=== PATIENT | female | born 1985 | race Caucasian/White ===

== ENCOUNTER 2023-08-19 15:55 | Observation (INO) ==
[2023-08-19 16:31] LABS: INR 1.03 (0.83-1.13)
[2023-08-19 16:33] LABS: ABS Basophils 0.1 10^3/uL (0.0-0.1); ABS Lymphocytes 1.2 10^3/uL (1.0-4.8); ABS Monocytes 0.9 10^3/uL (0.0-0.9); ABS Nucleated RBC 0.01 10^3/ul; Hematocrit 31.6 % (35-45); Hemoglobin 9.7 g/dL (11.5-14.3); Lymphocyte % 14.3 %; Mean Corpuscular Hemoglobin 20.7 pg (27-33); Mean Corpuscular Hgb Conc 30.8 g/dL (31-36); Mean Corpuscular Volume 67.2 fL (80-97); Mean Platelet Volume 8.3 fL (7.5-11.2); Nucleated Red Blood Cells % 0.1 %/100WBC (0.0-0.8); Platelet Count 160 10^3/uL (150-450); Red Cell Distribution Width 21.5 % (12-17); White Blood Count 8.1 10^3/uL (3.8-11.8)
[2023-08-19] MEDS ORDERED: Lactated Ringers 1000 ml BAG 1,000 ML IV ONE ×2 (16:41→16:42)
[2023-08-19] MEDS ORDERED: Lorazepam PYXIS KEY PRN (16:42)
[2023-08-19] MEDS ORDERED: LORazepam 2 mg VIAL 1 ml IV PUSH ONE (16:42)
[2023-08-19] MEDS ORDERED: Ondansetron 4 mg VIAL 2 MG/ML 2 ml VIAL IV ONE (16:42)
[2023-08-19 16:46] LABS: ALT 61 U/L (7-52); AST 123 U/L (13-39); Albumin 4.7 g/dL (3.2-5.2); Albumin/Globulin Ratio 1.7 (1-3); Alkaline Phosphatase 73 U/L (35-149); Anion Gap 14 mmol/L (2-16); Blood Urea Nitrogen 6 mg/dL (6-24); CO2 Carbon Dioxide 26 mmol/L (22-32); Calcium 9.7 mg/dL (8.6-10.3); Chloride 98 mmol/L (101-111); Creatinine, Serum 0.63 mg/dL (0.51-0.95); Globulin 2.8 g/dL (2-4); Glucose 111 mg/dL (70-100); Potassium 3.9 mmol/L (3.5-5.0); Sodium 138 mmol/L (135-145); Total Bilirubin 0.5 mg/dL (0.2-1.0); Total Protein 7.5 g/dL (6.4-8.9); eGFR CKD-EPI 118.6 (>60)
[2023-08-19 16:52] LABS: High Sens Troponin Baseline 4 pg/mL (<15)
[2023-08-19 16:59] LABS: Activated Partial Thrombo Time 27.2 seconds (26.0-38.0)
[2023-08-19 17:08] LABS: Alcohol, S 132 mg/dL (<13)
[2023-08-19 17:11] LABS: C Reactive Protein < 1.00 mg/L (<8.01); Magnesium 1.8 mg/dL (1.9-2.7)
[2023-08-19 17:18] LABS: HCG Pregnancy < 0.60 mIU/mL
[2023-08-19 17:50] LABS: High Sensitivity Troponin 1 Hr 4 pg/mL (<15)
[2023-08-19 18:33] LABS: Urine Appearance Cloudy; Urine Bilirubin Negative (Negative); Urine Blood Negative (Negative); Urine Color Yellow; Urine Glucose Negative (Negative); Urine Ketones Trace (Negative); Urine Nitrite Negative (Negative); Urine Protein 1+(30 mg/dL) (Negative); Urine Specific Gravity 1.013 (1.002-1.030); Urine Urobilinogen Negative (Negative)
[2023-08-19] MEDS ORDERED: Thiamine 100 MG/ML 2 ml VIAL (200 mg) IV ONE (18:44)
[2023-08-19] MEDS ORDERED: Folic Acid IV 1 MG in NS 0.9% 50 ML 50 ML IV ONE (18:44)
[2023-08-19 18:46] LABS: Urine Bacteria Absent (Absent); Urine Red Blood Cell Trace(0-2/hpf) (Absent); Urine Squamous Epithelial Cell Present (Absent); Urine White Blood Cell Trace(0-5/hpf) (Absent)
[2023-08-19] MEDS ORDERED: Thiamine IV 100 MG in NS 0.9% 50 ML IV ONE (19:30)
[2023-08-19 21:13] LABS: % Iron Saturation 3 % (15-55); .Transferrin 450 mg/dL (203-362); Iron < 20 ug/dL (50-212); Total Iron Binding Capacity 630 mcg/dL (250-450); Unsaturated Iron Binding 610 ug/dL
[2023-08-19] MEDS ORDERED: Magnesium Sulfate 2 gm BAG 2 GM/50 ML BAG IVPB ONE (21:17)
[2023-08-19] MEDS ORDERED: Ondansetron ODT 4 mg TAB 4 MG TAB SL PRN (21:17)
[2023-08-19 21:33] LABS: Ferritin 18.6 ng/mL (11-307)
[2023-08-19] MEDS: Pantoprazole VIAL 40 MG VIAL IV SCH (22:19)
[2023-08-19] MEDS: D5LR 1000 ml BAG 1,000 ML IV SCH (22:20)
[2023-08-20 06:07] LABS: ABS Eosinophils 0.1 10^3/uL (0.0-0.5); ABS Lymphocytes 1.3 10^3/uL (1.0-4.8); ABS Monocytes 1.1 10^3/uL (0.0-0.9); ABS Neutrophils 4.3 10^3/uL (1.5-7.6); Eosinophil % 0.9 %; Hemoglobin 8.3 g/dL (11.5-14.3); Lymphocyte % 18.6 %; Mean Corpuscular Hgb Conc 30.6 g/dL (31-36); Mean Corpuscular Volume 68.6 fL (80-97); Mean Platelet Volume 8.4 fL (7.5-11.2); Nucleated Red Blood Cells % 0.1 %/100WBC (0.0-0.8); Platelet Count 132 10^3/uL (150-450); Red Blood Count 3.93 10^6/uL (3.63-4.92); Red Cell Distribution Width 21.8 % (12-17); White Blood Count 6.8 10^3/uL (3.8-11.8)
[2023-08-20 06:21] LABS: Albumin 3.9 g/dL (3.2-5.2); Albumin/Globulin Ratio 1.6 (1-3); Calcium 8.9 mg/dL (8.6-10.3); Creatinine, Serum 0.61 mg/dL (0.51-0.95); Globulin 2.4 g/dL (2-4); Magnesium 2.2 mg/dL (1.9-2.7); Phosphorus 3.4 mg/dL (2.5-5.0); Potassium 3.4 mmol/L (3.5-5.0); Total Bilirubin 0.8 mg/dL (0.2-1.0); Total Protein 6.3 g/dL (6.4-8.9); eGFR CKD-EPI 119.5 (>60)
[2023-08-20] MEDS ORDERED: Potassium Chlor 20 meq TAB.ER PO ONE (07:13)
[2023-08-20] MEDS: Pantoprazole VIAL 40 MG VIAL IV SCH (08:41)
[2023-08-20] MEDS: D5LR 1000 ml BAG 1,000 ML IV SCH (08:41)
[2023-08-20] MEDS ORDERED: DULoxetine DR 60 mg CAP PO SCH (09:00)
[2023-08-20] MEDS ORDERED: Polyethylene Glycol 3350 17 GM PACKET PO SCH (09:00)
[2023-08-20 15:06] VITALS: BP 152/92
[2023-08-20] MEDS ORDERED: Senna TAB 8.6 mg TAB PO SCH (21:00)
[2023-08-21] MEDS ORDERED: Pantoprazole VIAL 40 MG VIAL IV SCH (09:00)
== END 2023-08-20 16:20 | disposition left against medical advice (07) ==
LOC: ED 15:55 → EDHOLD 15:55 → MED 21:37
PROVIDERS: ADMIT Hospitalist; ATTEND Hospitalist

== ENCOUNTER 2024-08-24 23:49 | Observation (INO) ==
[2024-08-25 00:22] LABS: ABS Lymphocytes 0.9 10^3/uL (1.0-4.8); ABS Monocytes 1.1 10^3/uL (0.0-0.9); ABS Neutrophils 15.2 10^3/uL (1.5-7.6); ABS Nucleated RBC 0.01 10^3/ul; Eosinophil % 0.1 %; Hematocrit 37.5 % (35-45); Hemoglobin 10.7 g/dL (11.5-14.3); Lymphocyte % 5.3 %; Mean Corpuscular Hemoglobin 22.4 pg (27-33); Mean Corpuscular Hgb Conc 28.5 g/dL (31-36); Mean Corpuscular Volume 78.5 fL (80-97); Mean Platelet Volume 7.4 fL (7.5-11.2); Nucleated Red Blood Cells % 0.1 %/100WBC (0.0-0.8); Platelet Count 424 10^3/uL (150-450); Red Blood Count 4.78 10^6/uL (3.63-4.92); White Blood Count 17.3 10^3/uL (3.8-11.8)
[2024-08-25] MEDS: Lactated Ringers 1000 ml BAG 1,000 ML IV ONE ×2 (00:23)
[2024-08-25 00:47] LABS: High Sens Troponin Baseline 17 pg/mL (<15)
[2024-08-25 01:00] LABS: Activated Partial Thrombo Time 27.6 seconds (26.0-38.0); INR 1.09 (0.85-1.14)
[2024-08-25 01:02] LABS: ALT 81 U/L (7-52); AST 188 U/L (13-39); Albumin 5.7 g/dL (3.5-5.7); Albumin/Globulin Ratio 1.9 (1-3); Alkaline Phosphatase 124 U/L (35-149); Anion Gap 35 mmol/L (2-16); Blood Urea Nitrogen 16 mg/dL (6-24); C Reactive Protein < 1.00 mg/L (<8.01); CO2 Carbon Dioxide 7 mmol/L (22-32); Calcium 10.3 mg/dL (8.6-10.3); Chloride 101 mmol/L (101-111); Creatinine, Serum 1.19 mg/dL (0.51-0.95); Glucose 83 mg/dL (70-100); Potassium 4.6 mmol/L (3.5-5.0); Sodium 143 mmol/L (135-145); Total Bilirubin 0.7 mg/dL (0.2-1.0); Total Protein 8.7 g/dL (6.4-8.9); eGFR CKD-EPI 60.8 (>60)
[2024-08-25 01:03] LABS: HCG Pregnancy < 0.60 mIU/mL
[2024-08-25] MEDS: Ondansetron 4 mg VIAL 2 MG/ML 2 ml VIAL IV ONE (01:18)
[2024-08-25 01:27] LABS: Urine Appearance Turbid; Urine Bilirubin Negative (Negative); Urine Blood 3+ (Negative); Urine Color Yellow; Urine Glucose Negative (Negative); Urine Ketones 1+ (Negative); Urine Nitrite Negative (Negative); Urine Protein 2+ (>=100 mg/dL) (Negative); Urine Specific Gravity 1.016 (1.002-1.030); Urine Urobilinogen Negative (Negative)
[2024-08-25 01:34] LABS: Acetaminophen < 15 mcg/mL; Creatine Kinase 55 U/L (10-223); Salicylate < 2.50 mg/dL (<30)
[2024-08-25 01:38] LABS: Osmolality Serum 360 mOsm/kg (275-295)
[2024-08-25 01:41] LABS: Urine Bacteria Absent /HPF (Absent); Urine Red Blood Cell 1+(3-5/hpf) /HPF (0-Trace); Urine Squamous Epithelial Cell Present /HPF (Absent); Urine White Blood Cell Absent /HPF (0-Trace)
[2024-08-25 01:57] LABS: High Sensitivity Troponin 1 Hr 16 pg/mL (<15)
[2024-08-25] MEDS: Iohexol 350 (CONTRAST) 500 ML MDV IV ONE (03:05)
[2024-08-25 03:17] LABS: Lipase 98 U/L (11.0-82.0)
[2024-08-25] MEDS: Piperacillin/Tazobac 3.375 BAG 3.375 GM/100 ML BAG IV ONE (03:17)
[2024-08-25] MEDS: Lactated Ringers 1000 ml BAG 1,000 ML IV SCH (03:21)
[2024-08-25] MEDS: ACETAMINOPHEN IV ONE (03:40)
[2024-08-25] MEDS ORDERED: Sulfur Hexaflouride MICROSPHR 25 MG VIAL IV PRN (03:49)
[2024-08-25] MEDS: Droperidol 5 MG/2 ML 2 ML VIAL IV ONE (04:29)
[2024-08-25] MEDS: Pantoprazole VIAL 40 MG VIAL IV SCH ×2 (04:29→16:06)
[2024-08-25] MEDS ORDERED: Zosyn per Pharmacy NOTE FOLLOW UP SCH (05:00)
[2024-08-25] MEDS: Thiamine 100 MG/ML 2 ml VIAL 100 MG in NS 0.9% 50 ML 50 ML IV SCH (05:01)
[2024-08-25 05:06] LABS: Venous Bicarbonate HCO3 9.7 mmol/L (24-28)
[2024-08-25 05:10] LABS: ABS Lymphocytes 1.1 10^3/uL (1.0-4.8); ABS Monocytes 1.1 10^3/uL (0.0-0.9); ABS Neutrophils 13.8 10^3/uL (1.5-7.6); ABS Nucleated RBC 0.01 10^3/ul; Hematocrit 35.3 % (35-45); Hemoglobin 9.9 g/dL (11.5-14.3); Lymphocyte % 7.1 %; Mean Corpuscular Hemoglobin 21.8 pg (27-33); Mean Corpuscular Hgb Conc 27.9 g/dL (31-36); Mean Corpuscular Volume 78.1 fL (80-97); Mean Platelet Volume 7.6 fL (7.5-11.2); Platelet Count 308 10^3/uL (150-450); Red Blood Count 4.53 10^6/uL (3.63-4.92); Red Cell Distribution Width 18.8 % (12-17); White Blood Count 16.1 10^3/uL (3.8-11.8)
[2024-08-25] MEDS: diazePAM INJ CARPUJECT 5 MG/ML SYRINGE IV ONE (05:21)
[2024-08-25] MEDS: Folic Acid IV 1 MG in NS 0.9% 50 ML 50 ML IV ONE (05:42)
[2024-08-25 06:05] LABS: Albumin 5.3 g/dL (3.5-5.7); Albumin/Globulin Ratio 2.1 (1-3); Calcium 9.9 mg/dL (8.6-10.3); Creatinine, Serum 0.88 mg/dL (0.51-0.95); Globulin 2.5 g/dL (2-4); Magnesium 1.9 mg/dL (1.9-2.7); Phosphorus 4.4 mg/dL (2.5-5.0); Potassium 4.6 mmol/L (3.5-5.0); Total Bilirubin 1.1 mg/dL (0.2-1.0); Total Protein 7.8 g/dL (6.4-8.9); eGFR CKD-EPI 87.3 (>60)
[2024-08-25] MEDS ORDERED: Dextrose 50% Syringe 50 ml 25 GM/50 ML SYRINGE IV PUSH PRN (06:09)
[2024-08-25] MEDS: diazePAM INJ CARPUJECT 5 MG/ML SYRINGE IV SCH ×2 (08:44→17:03)
[2024-08-25] MEDS: Magnesium Sulfate 2 gm BAG 2 GM/50 ML BAG IVPB ONE (08:53)
[2024-08-25] MEDS: ZOSYN 3.375 GM Q8H per EXTENDED INFUSION IV SCH ×2 (08:54→09:26)
[2024-08-25] MEDS: D5LR 1000 ml BAG 1,000 ML IV SCH ×2 (09:29→09:34)
[2024-08-25 10:04] LABS: Venous Bicarbonate HCO3 20.2 mmol/L (24-28)
[2024-08-25 10:55] LABS: Calcium 9.1 mg/dL (8.6-10.3); Creatinine, Serum 0.83 mg/dL (0.51-0.95); Magnesium 1.9 mg/dL (1.9-2.7); Phosphorus 2.6 mg/dL (2.5-5.0); Potassium 4.5 mmol/L (3.5-5.0); eGFR CKD-EPI 93.6 (>60)
[2024-08-25] MEDS: Potassium Phosphate IV 10 MMOL in NS 0.9% 250 ml 250 ML IVPB ONE (12:14)
[2024-08-26] MEDS: ZOSYN 3.375 GM Q8H per EXTENDED INFUSION IV SCH (00:35)
[2024-08-26] MEDS: Thiamine 100 MG/ML 2 ml VIAL 100 MG in NS 0.9% 50 ML 50 ML IV SCH (05:32)
[2024-08-26 05:55] LABS: Hematocrit 28.6 % (35-45); Hemoglobin 8.7 g/dL (11.5-14.3); Mean Corpuscular Hemoglobin 22.2 pg (27-33); Mean Corpuscular Hgb Conc 30.5 g/dL (31-36); Mean Corpuscular Volume 72.7 fL (80-97); Mean Platelet Volume 7.5 fL (7.5-11.2); Platelet Count 233 10^3/uL (150-450); Red Blood Count 3.93 10^6/uL (3.63-4.92); Red Cell Distribution Width 18.8 % (12-17); White Blood Count 14.5 10^3/uL (3.8-11.8)
[2024-08-26 06:05] LABS: Albumin/Globulin Ratio 1.9 (1-3); Calcium 8.9 mg/dL (8.6-10.3); Creatinine, Serum 0.59 mg/dL (0.51-0.95); Globulin 2.1 g/dL (2-4); Phosphorus 1.4 mg/dL (2.5-5.0); Potassium 3.8 mmol/L (3.5-5.0); Total Bilirubin 0.7 mg/dL (0.2-1.0); Total Protein 6.1 g/dL (6.4-8.9); eGFR CKD-EPI 119.7 (>60)
[2024-08-26 06:14] LABS: ABS Lymphocytes 1.1 10^3/uL (1.0-4.8); ABS Monocytes 1.2 10^3/uL (0.0-0.9); ABS Neutrophils 12.1 10^3/uL (1.5-7.6); ABS Nucleated RBC 0.03 10^3/ul; Anisocytosis 1+; Eosinophil % 0.1 %; Lymphocyte % 7.8 %; Microcytosis 2+; Nucleated Red Blood Cells % 0.2 %/100WBC (0.0-0.8); Target Cells 1+
[2024-08-26] MEDS: Potassium Phosphate IV 10 MMOL in NS 0.9% 250 ml 250 ML IVPB ONE (09:41)
[2024-08-26 13:34] VITALS: BP 143/89
== END 2024-08-26 17:00 | disposition home or self-care (01) ==
LOC: ED 23:49 → EDHOLD 23:49 → ICU 08-25 08:14 → MED 08-25 09:53 → SUATTDRO 08-25 12:06
PROVIDERS: ADMIT Student in an Organized Health Care Education/Training Program; ATTEND Student in an Organized Health Care Education/Training Program